=== PATIENT | male | born 1975 | race Caucasian/White ===

== ENCOUNTER 2020-01-13 22:20 | Emergency (ER) | payer BC ==
[~2020-01-13] VITALS: Ht 193 cm; Wt 158.8 kg
[2020-01-13 23:08] LABS: ABSOLUTE BASOPHILS 0.1 thou/uL (0.0-0.2); ABSOLUTE EOSINOPHILS 0.5 thou/uL (0.0-0.7); ABSOLUTE MONOCYTES 0.6 thou/uL (0.0-1.2); EOSINOPHILS 5.5 %; HEMOGLOBIN 14.3 gm/dL (14.0-18.0); LYMPHOCYTES 36.9 %; MCH 31.4 pg (26.0-34.0); MCV 89.8 fL (80.0-100.0); MONOCYTES 7.3 %; MPV 7.2 fl. (7.2-11.1); NUCLEATED RBCS 0 /100WBC; PLATELET COUNT* 299 thou/uL (150-400); POLYS 49.3 %; RBC 4.57 mil/uL (4.50-6.00); RDW-CV 12.9 % (10.5-14.5); WBC 8.2 thou/uL (4.0-11.0)
[2020-01-13 23:16] LABS: CALCIUM 8.5 mg/dL (8.5-10.1); CREATININE 1.3 mg/dL (0.6-1.3); POTASSIUM 4.1 mmol/L (3.5-5.1)
[2020-01-13] MEDS ORDERED: LYRICA 75 MG CA75 MG PO (23:18)
[2020-01-13] MEDS ORDERED: TOPAMAX100 MG PO (23:18)
[2020-01-13] MEDS ORDERED: ZOLOFT100 MG PO (23:18)
[2020-01-13] MEDS ORDERED: BACTRIM DS TAB1 EACH PO (23:19)
[2020-01-13 23:27] LABS: ALBUMIN 3.8 g/dL (3.4-5.0); MAGNESIUM 1.8 mg/dL (1.8-2.4); TOTAL BILIRUBIN 0.2 mg/dL (<0.1-1.0); TOTAL PROTEIN 7.4 g/dL (6.4-8.2)
[2020-01-14] MEDS ORDERED: FUROSEMIDE 20 M20 MG PO (00:09)
[2020-01-14 00:36] LABS: URINE BILIRUBIN NEGATIVE (Negative); URINE BLOOD NEGATIVE (Negative); URINE CLARITY CLEAR; URINE COLOR YELLOW; URINE GLUCOSE-RANDOM NEGATIVE (Negative); URINE KETONES NEGATIVE (Negative); URINE LEUKOCYTES-REFLEX NEGATIVE (Negative); URINE NITRITE-REFLEX NEGATIVE (Negative); URINE PROTEIN NEGATIVE (Negative); URINE UROBILINOGEN 0.2 E.U./dl (0.2-1.0)
[2020-01-14 00:51] VITALS: BP 119/65
== END 2020-01-14 00:53 | disposition home or self-care (01) ==
LOC: M.ERS 22:20
PROVIDERS: Emergency Medicine
DX: G62.9 Polyneuropathy, unspecified (principal); M54.5 Low back pain; R60.0 Localized edema; G47.30 Sleep apnea, unspecified